=== PATIENT | male | born 1965 ===

== ENCOUNTER 2017-10-19 13:35 | Emergency (ER) | payer OTHER ==
[2017-10-19 13:35] VITALS: BMI 29.9
[2017-10-19 14:20] VITALS: RESP 18; TEMP 98.4
[2017-10-19] MEDS ORDERED: Naproxen 550 mg Tab PO STA (15:37)
[2017-10-19] MEDS ORDERED: Naproxen 550 mg Tab PO ONE (15:48)
--- NOTE | 2017-10-19 16:08 | RAD ---
PROCEDURE: Right Knee Radiographs. HISTORY: anteriomedial pain COMPARISON: None. FINDINGS: BONES: No acute fracture. There is evidence of old avulsive injury of the medial epicondyles. Productive bony change seen along the cortex of the medial epicondyles. JOINTS: Normal. No osteoarthritis. JOINT EFFUSION: None. OTHER FINDINGS: None. IMPRESSION: No acute abnormality. Probable old avulsive injury of medial epicondyles.
--- NOTE | 2017-10-19 16:29 | C.PDOC ---
History Of Present Illness Pt c/o right knee pain. Time Seen by Provider: 10/19/17 15:33 Chief Complaint (Nursing): Lower Extremity Problem/Injury History Per: Patient Onset/Duration Of Symptoms: Days (years) Current Symptoms Are (Timing): Still Present Severity: Moderate Additional History Per: Prior Records Past Medical History Reviewed: Historical Data, Nursing Documentation, Vital Signs Vital Signs: Last Vital Signs Temp 98.4 F 10/19/17 14:17 Pulse 65 10/19/17 14:17 Resp 18 10/19/17 14:17 BP 178/93 H 10/19/17 14:17 Pulse Ox 98 10/19/17 14:17 - Medical History PMH: HTN Family History: States: Unknown Family Hx - Social History Hx Alcohol Use: Yes Hx Substance Use: No - Immunization History Hx Tetanus Toxoid Vaccination: No Hx Influenza Vaccination: No Hx Pneumococcal Vaccination: No Review Of Systems Except As Marked, All Systems Reviewed And Found Negative. Constitutional: Negative for: Fever, Weakness Cardiovascular: Negative for: Chest Pain Respiratory: Negative for: Shortness of Breath Gastrointestinal: Negative for: Vomiting, Abdominal Pain Musculoskeletal: Negative for: Neck Pain, Back Pain Skin: Negative for: Rash Neurological: Negative for: Weakness, Numbness Physical Exam - Physical Exam Appears: Non-toxic, No Acute Distress Skin: Normal Color, Warm, Dry, No Rash Head: Atraumatic, Normacephalic Eye(s): bilateral: PERRL, EOMI Neck: Normal ROM, Supple Extremity: Normal ROM, Tenderness (medial aspect of anterior right knee), No Pedal Edema, No Calf Tenderness Extremity: Bilateral: Normal Color And Temperature Pulses: Right Dorsalis Pedis: Normal Neurological/Psych: Oriented x3, Normal Motor, Normal Sensation ED Course And Treatment O2 Sat by Pulse Oximetry: 98 Pulse Ox Interpretation: Normal - Other Rad Right knee x-rays X-Ray: Viewed By Me, Read By Radiologist Interpretation: IMPRESSION: No acute abnormality. Probable old avulsive injury of medial epicondyles. Disposition Counseled Patient/Family Regarding: Studies Performed, Diagnosis, Need For Followup, Rx Given - Disposition Referrals: [facility] [Outside] Disposition: HOME/ ROUTINE Disposition Time: 16:29 Condition: STABLE Additional Instructions: Follow up with an lab specialist. Return to the ER if you develop worsening of symptoms or if you have any other concerns. Prescriptions: Naproxen [Naprosyn] 1 tab PO BID PRN #20 tab PRN Reason: Pain Instructions: Knee Pain (DC) Print Language: LUXEMBOURGER - Clinical Impression Clinical Impression: Chronic pain of right knee
[2017-10-19 16:41] VITALS: BP 162/89; PULSE 62; O2SAT 100
== END 2017-10-19 16:40 | disposition home or self-care (01) ==
LOC: C.ER 13:35
DX: G89.29 Other chronic pain (principal); M25.561 Pain in right knee; I10 Essential (primary) hypertension

== ENCOUNTER 2017-12-28 14:19 | Emergency (ER) | payer OTHER ==
[2017-12-28 14:19] VITALS: BMI 29.9
[2017-12-28 14:36] VITALS: BP 156/93; PULSE 63; RESP 20; TEMP 99.4; O2SAT 99
--- NOTE | 2017-12-28 14:41 | C.PDOC ---
History Of Present Illness 52 yo male w/PMhx of Right knee arthralgia, come in to ED noted to wear Right knee brace request " medical clearance for job". Pt sts, was sent from his job for medication evaluation and job clearance. Pt admits, 3 months ago hx of Right knee injury, was seen in Clinic for Right knee arthralgia before. Pt admits, still has Right knee pain, localized, intermittent worse with weight bearing. Otherwise, pt denies fever, chills, recent new trauma or injury, CP, SOB, cough, dyspnea, palpitation, denies Right knee skin changes, deformity, weakness, sensory or vascular deficits to Right leg, denies Right calf pain. Pt has scheduled Ortho appointment on 12/08/17. Ambulatory in Ed with stable gait, not in any apparent distress. Time Seen by Provider: 12/28/17 14:22 Chief Complaint (Nursing): Lower Extremity Problem/Injury History Per: Patient Past Medical History Reviewed: Historical Data, Nursing Documentation, Vital Signs Vital Signs: Last Vital Signs Temp 99.4 F 12/28/17 14:35 Pulse 63 12/28/17 14:35 Resp 20 12/28/17 14:35 BP 156/93 H 12/28/17 14:35 Pulse Ox 99 12/28/17 14:35 - Medical History PMH: Arthritis, HTN Surgical History: No Surg Hx Family History: States: Unknown Family Hx - Social History Hx Alcohol Use: Yes Hx Substance Use: No - Immunization History Hx Tetanus Toxoid Vaccination: No Hx Influenza Vaccination: No Hx Pneumococcal Vaccination: No Review Of Systems Except As Marked, All Systems Reviewed And Found Negative. Constitutional: Negative for: Fever, Chills ENT: Negative for: Throat Pain, Throat Swelling Cardiovascular: Negative for: Chest Pain, Palpitations Respiratory: Negative for: Cough, Shortness of Breath Gastrointestinal: Negative for: Nausea, Vomiting Genitourinary: Negative for: Frequency, Incontinence Musculoskeletal: Positive for: Other (Right knee pain) Skin: Negative for: Rash Neurological: Negative for: Weakness, Numbness, Headache Physical Exam - Physical Exam Appears: Well, Non-toxic, No Acute Distress Skin: Normal Color, Warm, No Rash, No Ecchymosis Head: Normacephalic Eye(s): bilateral: PERRL Extremity: Normal ROM (Right knee without significant difficulty), Tenderness ( over lateral aspects Right knee. NO skin changes, no edema or erythema. no palpable deformity.), No Calf Tenderness (Right), Capillary Refill (less than 2 sec to Right foot), No Deformity, No Swelling Neurological/Psych: Oriented x3, Normal Speech, Normal Motor, Normal Sensation, Normal Reflexes ED Course And Treatment O2 Sat by Pulse Oximetry: 99 Progress Note: On re-eval, pt is afebrile, hemodynamicaly stable. Non-toxic. Ambulatory in ED with stable gait. Right knee: exam c/w mild arthralgia, No edema or erythema, no warth, no deformity or skin changes, no calf tenderness. FAROM, no neurovascular deficits. Pt has clinical findings c/w Right knee arthralgia, chronic. Pt advised to F/U with PMD, Ortho in 2-3 days for re- evaluation and medical clrearence. Return if any new changes. Disposition Counseled Patient/Family Regarding: Diagnosis, Need For Followup, Rx Given - Disposition Referrals: [facility] at [facility] [Outside] Disposition: HOME/ ROUTINE Disposition Time: 14:45 Condition: STABLE Additional Instructions: Follow up with PMD and Orthopedist as scheduled on 01/08/18 or sooner for further evaluation and medical clearance Return to ED if any new changes. Prescriptions: traMADol [Ultram] 50 mg PO TID #7 tab Instructions: Chronic Knee Pain (DC) Print Language: BAHRAINI - Clinical Impression Clinical Impression: Arthralgia of knee, right
== END 2017-12-28 14:59 | disposition home or self-care (01) ==
LOC: C.ER 14:19
DX: M25.561 Pain in right knee (principal)